=== PATIENT | female | born 1995 | race Hispanic/Latino ===

== ENCOUNTER 2018-10-23 16:35 | Inpatient (IN) | payer OTHER ==
--- OUTSIDE RECORDS SUMMARY | 2018-10-23 16:37 | XMS REPORT ---
:1995 [facility] Address [address] [place] [address] Dr. Starr [address] [place] [id number] Care Team Providers Name Role Phone Unavailable Unavailable Unavailable Problems This patient has no known problems. Allergies, Adverse Reactions, Alerts This patient has no known allergies or adverse reactions. Medications This patient has no known medications.
[2018-10-23] MEDS ORDERED: PROMETHAZINE 25 MG/ML VIAL IM PRN (17:23)
[2018-10-23] MEDS ORDERED: METHYLERGONOVINE 0.2MG/ML AMP IM PRN (17:23)
[2018-10-23] MEDS ORDERED: Ringers Lactate 1,000 ML IV PRN (17:23)
[2018-10-23] MEDS ORDERED: BUTORPHANOL 1 MG/ML INJ IV PRN (17:23)
[2018-10-23] MEDS ORDERED: Ringers Lactate 1,000 ML IV SCH (18:00)
[2018-10-23 18:17] LABS: Urine Appearance CLEAR; Urine Bilirubin NEGATIVE (NEG); Urine Blood TRACE (NEG); Urine Color DK YELLOW; Urine Glucose NEGATIVE (NEG); Urine Protein NEGATIVE (NEG); Urine Specific Gravity >=1.030 (1.005-1.030); Urine Urobilinogen 0.2 mg/dL (0.2-1.0)
[2018-10-23 18:27] LABS: Urine Microscopic Reflex ORDER UMIC
[2018-10-23 18:28] LABS: Urine Bacteria 20-50 /HPF (<20)
[2018-10-23 18:29] LABS: Urine Amorphous Sediment 1+ /HPF (NONE SEEN); Urine Culture Reflex Order ND; Urine Mucus 4+ /HPF (NONE SEEN)
[2018-10-23 18:49] LABS: Absolute Lymphocytes (CBC) 1.4 K/uL (0.7-4.9); Basophils % 0.3 % (0-1.3); Hematocrit 32.2 % (36.0-45.0); Lymphocytes % 5.7 % (15.3-44.8); RBC Red Blood Cell Count 3.96 M/uL (3.86-4.86)
[2018-10-23 18:54] VITALS: BMI 30.8
[2018-10-23 19:57] LABS: Blood Morphology Comment NOT SEEN (NOT SEEN); Platelet Estimate ADEQ
[2018-10-23 20:19] LABS: RPR (Rapid Plasma Reagin) NON-REACT (NON-REACT)
[2018-10-23] MEDS ORDERED: BUTORPHANOL 1 MG/ML INJ IV ONE (20:53)
[2018-10-24] MEDS ORDERED: FENTANYL CITR 100 MCG/2 ML IV ONE (01:11)
[2018-10-24] MEDS ORDERED: ROPIVACAINE HCL 100 ML IV PRN (01:11)
[2018-10-24] MEDS ORDERED: ROPIVACAINE HCL 0.2% 20ML AMP IV ONE (01:18)
[2018-10-24] MEDS ORDERED: ROPIVACAINE HCL 20 ML ONE (01:27)
[2018-10-24] MEDS ORDERED: ROPIVACAINE HCL 100 ML IV ONE (01:27)
--- NOTE | 2018-10-24 02:33 | PREOPHP ---
Date of Admission: 10/23/2018 A 22-year-old primigravida at approximately 39 to 39 weeks and 1 day, was seen earlier in the day for contractions and sent home. Came back, is now in more active labor. She has now progressed to 2-1/2 , almost 3 cm, 70% effaced, vertex at still -1 station, not well applied to the cervix. FHTs are nor mal and reactive. White count on admission was 23,000, but patient has been at home and seems to be hurting fairly well. She has already had 1 dose of Stadol and requesting another dose. Full admissi on talk given. She will probably be requesting epidural, but if possible, she will wait because she is 4 cm before she gets the epidural. I do not think she has any infection at this point. The uteru s is not tender. She is not warm. The baby looks good with no tachycardia, but we will watch her te mperatures carefully to make sure she does not develop an amnionitis. Full labor talk given. Stephanii forbes delivery sometime probably tomorrow. JERMAINE/JONATHAN Voice ID: [id number]
[2018-10-24] MEDS ORDERED: OXYTOCIN/LR 20 UNIT/1,000 ML BAG IV SCH (03:00)
[2018-10-24] MEDS ORDERED: PENICILLIN G POT 5 MU/VIAL IV ONE (03:42)
[2018-10-24] MEDS ORDERED: NA CHLORIDE 0.9% 200 ML IV ONE (03:43)
[2018-10-24] MEDS ORDERED: METOCLOPRAMIDE 10 MG/2mL INJ ONE (05:17)
[2018-10-24] MEDS ORDERED: FAMOTIDINE 20 MG/2 ML VIAL IV ONE (05:17)
[2018-10-24] MEDS ORDERED: NA CIT/CITRIC AC 30 ML ORAL UDC ONE (05:17)
[2018-10-24] MEDS ORDERED: CEFAZOLIN/SWI 1gm 2 GM/20 ML SYR ONE (05:17)
[2018-10-24] MEDS ORDERED: OXYTOCIN 10 UNIT/ML ML IV ONE ×2 (05:35)
[2018-10-24] MEDS ORDERED: MORPHINE SULFATE/PF 1 MG/ML (10 ML AMP) ONE (05:43)
[2018-10-24] MEDS ORDERED: LIDOCAINE 2% W/EPI 1:200,000 MPF 20 ML VIAL IM ONE (05:43)
[2018-10-24] MEDS ORDERED: METHYLERGONOVINE 0.2MG/ML AMP IM ONE (07:32)
[2018-10-24] MEDS ORDERED: KETOROLAC 30 MG/ML INJ ONE (08:45)
[2018-10-24] MEDS ORDERED: PENICILLIN 2.5 MU in NA CHLORIDE 0.9% 100 ML IV SCH (09:00)
[2018-10-24] MEDS ORDERED: PENICILLIN G POT 5 MU/100 ML VIAL IV ONE (09:00)
[2018-10-24] MEDS ORDERED: METHYLERGONOVINE 0.2 MG TAB PO ONE (09:22)
[2018-10-24] MEDS ORDERED: KETOROLAC 30 MG/ML INJ IV ONE (09:23)
--- NOTE | 2018-10-24 09:27 | PN ---
The patient has received her epidural and so numb she can barely move her leg. She is on 10, mainten ance. We will move it to 8. She is 4 cm, 80% to 90% effaced, vertex, -1 station. Rupture of membra ramo, very light meconium. Basically term fluid. Definitely not thick meconium. No bad odor. Patie nt has had no fevers. Baby does not have any tachycardia, still feel that we do not have any signs o f amnionitis. Scalp electrode placed. There was some question of late decelerations, but Pitocin wa s discontinued, it has gone back to normal. She has had 2 doses of Stadol, still very sleepy, but as the Stadol wears off, I think we will see more variability although the variability at this point re ally look quite good. With rupture of membranes, she is still lópez every 2 minutes on her own . I think we should start seeing some more progress. JERMAINE/JONATHAN Voice ID: [id number] Report ID: [id number]
[2018-10-24] MEDS: METHYLERGONOVINE 0.2 MG TAB PO PRN ×3 (09:28→17:58)
[2018-10-24 13:16] LABS: Absolute Lymphocytes (CBC) 2.2 K/uL (0.7-4.9); Basophils % 0.4 % (0-1.3); Hematocrit 30.1 % (36.0-45.0); Lymphocytes % 9.2 % (15.3-44.8); MPV 10.9 fL (7.6-11.3); RBC Red Blood Cell Count 3.75 M/uL (3.86-4.86)
[2018-10-24] MEDS ORDERED: CEFAZOLIN/SWI 2gm 2 GM/20 ML SYR IV ONE (14:00)
[2018-10-24] MEDS ORDERED: DIPHENHYDRAMINE 50 MG/ML VIAL IV ONE (15:30)
[2018-10-24] MEDS ORDERED: D5LR 1,000 ML with OXYTOCIN 20 UNIT IV SCH ×2 (16:00)
[2018-10-24] MEDS ORDERED: Oxycodone HCl/Acetaminophen 1 TAB TAB PO PRN (18:23)
[2018-10-24] MEDS: Oxycodone HCl/Acetaminophen 1 TAB TAB PO PRN (18:30)
[2018-10-25] MEDS ORDERED: KETOROLAC 30 MG/ML INJ ONE (00:18)
[2018-10-25] MEDS ORDERED: KETOROLAC 30 MG/ML INJ IV PRN (00:24)
[2018-10-25] MEDS ORDERED: MAGNESIUM HYDROXIDE 8% 30 ML PO PRN (04:20)
[2018-10-25] MEDS: Oxycodone HCl/Acetaminophen 1 TAB TAB PO PRN ×2 (07:42→14:23)
--- NOTE | 2018-10-25 08:42 | PN ---
Postoperatively, patient has done quite well. H and H with minimal change. The patient had an eleva elfego white count on admission. White count is still elevated, but she is completely afebrile, and not showing any signs of amnionitis. We will discontinue her Worley catheter this morning. We will leav e her IV, get another white blood count at around 12 to 1 o'clock. If that is decreasing we will dis continue the IV. We will start p.o. intake. Stress ambulation. Possibly send her home tomorrow. N o post epidural problems noted at this time. Lochia is normal. Tdap and flu shots have been discuss ed. JERMAINE/JONATHAN Voice ID: [id number] Report ID: [id number]
--- NOTE | 2018-10-25 08:49 | PREOPHP ---
Date of Admission: 10/23/2018 Patient is 4 cm, 70% effaced, with rupture of membranes, got her brownish type fluid, nothing looks l ight meconium, but not completely normal looking fluid either and no odor. Patient has an epidural a nd she is extremely comfortable but we have seen minimal skts-mf-pytd variability. For some time, sh e is long as 10 inches minutes at a time. Acoustic stimulation resulted in minimal response. At thi s point, I think we have nonreassuring situation. Patient is counseled, she wishes to proceed with cuong dobbs. Infection, blood loss, anesthetic complications, injury to bladder, bowel, ureter, postoper ative complications, clots in legs, pneumonia discussed. The patient knows fully well, this does not constitute all the possible problems that could occur during or following surgery. Heart and lungs are clear. Breasts not examined. Abdomen is term. Extremities are clear without major edema, cyano sis, or clubbing. Pelvic exam is as stated. She has no allergies. We will give her 2 g of Ancef, F oley catheters inserted. Dr. Bailey and Dr. Vargas for medical assistant float surgeon, and Dr. Lora, Ped iatrics all been notified and preparations are being made at this time. JERMAINE/JONATHAN Voice ID: [id number]
--- NOTE | 2018-10-25 08:57 | OP ---
Surgeon: Kris Gandara MD This 22-year-old primigravida, on admission 39 weeks and 1 day, delivery, came in early labor and pro gressed to approximately 4 cm and then experienced secondary arrest of labor for several hours. James miguel was started but then patient had late decelerations therefore the Pitocin was stopped, came in ru pture of membranes, brownish type fluid was noted. Admission white count of 23,000 but afebrile. No unusual odor. No severe uterine tenderness. No tachycardia. Patient requested and received epidural anesthesia and 2 doses of Stadol IV prior to the epidural. It was decided to proceed with c esarean section secondary to nonreassuring and failure to progress. Infection, blood loss, anestheti c complications injury to bladder, bowel, ureter, postoperative complications, clots in legs, and pne umonia. The patient knows fully well, this not constitute all the possible problems that could occur during or following surgery. The epidural anesthesia was used with Dr. Bailey being here for marcela jcak. Dr. Vargas for executive sales assistant, surgeon Dr. Lora and pediatric attendance. The patient was prepped and draped in the usual sterile manner and placed in dorsal supine position. Timeout was per formed. 2 g of Ancef had been given preop for prophylaxis. Pfannenstiel incision was created. The incision was carried to the fascia. The fascia was incised and incision carried transversely bilater ally. Anterior fascial plane was developed with both blunt and sharp dissection. The underlying rec tus muscle was . The posterior fascial plane was also developed. Bladder flap developed. Low transverse uterine incision created. A 6 pounds 12 ounce female delivered without difficulties, Apgars 8 and 9. No unusual odor, but brownish fluid as noted previously. Placenta removed manually. Uterus cleared of clot and blood and exteriorized. Mild uterine hypotonus, 0.2 mg of Methergine IM as well as IV drip Pitocin and massage. Total blood loss during the procedure 1000 cc. Uterus clos ed with a running locked stitch of 1 chromic, followed by imbricating, followed by 2 huisma-fi-pnogc stitches in either angle for complete hemostasis. Gutters cleared of clot and blood. Uterus was rep laced in the peritoneal cavity. Inspection of suture line showed no further bleeding. Rectus muscle s were with 3 sutures of 0 Vicryl. The fascia was then reapproximated with 1 Vicryl runnin g from either angle to the midline. Subcutaneous tissue was closed with 2-0 plain. Absorbable stapl es placed and then metal dereck. Patient tolerated all procedures well, was transferred back to her room in good condition. She was noted to have a tachycardia according to the nurses' which began ri ght after her epidural was given, possibly some epinephrine drift into the systemic circulation howev er patient is quite stable at this point and is conversant and alert. We will monitor the pulse of cuong wilcox carefully. Final Diagnoses: Intrauterine gestation, nonreassuring FHTs. Failure to progress in labor, primary section, low transverse cervical. Epidural anesthesia. Mild uterine hypotonus. JERMAINE/JONATHAN Voice ID: [id number] Report ID: [id number]
[2018-10-25 12:32] LABS: Absolute Lymphocytes (CBC) 1.8 K/uL (0.7-4.9); Basophils % 0.1 % (0-1.3); Hematocrit 27.2 % (36.0-45.0); Lymphocytes % 9.3 % (15.3-44.8); MPV 10.8 fL (7.6-11.3); RBC Red Blood Cell Count 3.39 M/uL (3.86-4.86)
[2018-10-25 13:16] LABS: Blood Morphology Comment NOTED (NOT SEEN); Hypochromasia 1+; Platelet Estimate ADEQ; Urine White Blood Cell Casts OK
[2018-10-26] MEDS: Oxycodone HCl/Acetaminophen 1 TAB TAB PO PRN ×2 (03:30→08:05)
[2018-10-26] MEDS ORDERED: Tdap (Diph,Pertuss(Acell),Tet Vac) 0.5 ML SYR IMVAC ONE (07:47)
[2018-10-26 08:26] VITALS: BP 121/65; TEMP 96.7
--- NOTE | 2018-10-28 09:58 | DS ---
Date of Discharge: 10/26/2018 Summary: This 22-year-old primigravida, 39 weeks 1 day, underwent primary section, nonreass uring heart tones and failure to progress in labor. 6 pounds 12 ounce female, Apgars 8 and 9. Brownish-looking amniotic fluid, but no true meconium. Epidural anesthesia used during the labor an d for section, mild uterine hypotonus. Estimated blood loss 1000 cc. Postoperatively, H an d H with minimal change. Vital signs are all stable. No post epidural problems. Ambulating and voi ding. Lochia is normal. Full dismissal instructions given. She is to be seen next week in the offi ce for staple removal. Over the weekend, any fever, pain, bleeding or any other problems, she is to call to labor and delivery. The patient cannot remember whether she has had her Tdap immunization du ring the . She was given instructions to get it several times but cannot remember whether s he came up to labor and delivery and got it. She can get another one if she chooses. She knows she c an come by the office next week for flu shots. We have gone over all of this before in the and we went over it again today. Final Diagnoses: Intrauterine gestation, 39 weeks 1 day, primary section, nonreassuring FHT s and failure to progress in labor. Mild uterine hypotonus. JERMAINE/JONATHAN Voice ID: [id number] Report ID: [id number]
[2018-10-29 03:55] LABS: HBsAG Nonreactive (Nonreactive)
== END 2018-10-26 08:35 | disposition home or self-care (01) | DRG 788 ==
LOC: L&D 16:35 → 2ND-WC 17:51
PROVIDERS: ADMIT Specialist; ATTEND Specialist
PROC: 10D00Z1 Extraction of Products of Conception, Low, Open Approach (ICD-10-PCS; 2018-10-24)
PROC: 10907ZC Drainage of Amniotic Fluid, Therapeutic from Products of Conception, Via Natural or Artificial Opening (ICD-10-PCS; principal; 2018-10-24 05:56)
DX: O76 Abnormality in fetal heart rate and rhythm complicating labor and delivery (principal); O62.0 Primary inadequate contractions; O62.2 Other uterine inertia; Z3A.39 39 weeks gestation of pregnancy; Z37.0 Single live birth; Z23 Encounter for immunization
CPT/HCPCS: 36415; 81003; 81015; 85025; 86592; 86901; 87340; 88307; 90471; 90715; 99218; J0595; J0690; J2550; J2590; J2765; J2795; J3010

== ENCOUNTER 2018-10-27 14:58 | Emergency (ER) | payer OTHER ==
--- OUTSIDE RECORDS SUMMARY | 2018-10-27 15:01 | XMS REPORT ---
:1995 [facility] Address [address] [place] [address] Dr. St[address] [place] [address] Care Team Providers Name Role Phone Unavailable Unavailable Unavailable Problems This patient has no known problems. Allergies, Adverse Reactions, Alerts This patient has no known allergies or adverse reactions. Medications This patient has no known medications.
--- NOTE | 2018-10-27 15:30 | RAD REPORT ---
EXAM DESCRIPTION: RAD - Chest Pa And Lat (2 Views) - 10/27/2018 3:25 pm CLINICAL HISTORY: SOB Chest pain. COMPARISON: No comparisons FINDINGS: The lungs are clear. The heart is normal in size. No displaced fractures. IMPRESSION: No acute or concerning finding suspected.
[2018-10-27 17:33] LABS: Urine Blood 1+ (NEG); Urine Glucose NEGATIVE (NEG); Urine Protein NEGATIVE (NEG); Urine Specific Gravity 1.015 (1.005-1.030); Urine pH 6.5 (5.0-7.0)
--- NOTE | 2018-10-27 17:41 | RAD REPORT ---
EXAM DESCRIPTION: CT - Chest For Pe Angio - 10/27/2018 5:30 pm CLINICAL HISTORY: Chest pain. shortness of breath, recent surgery COMPARISON: No comparisons TECHNIQUE: CT angiogram of the pulmonary arteries was performed with MIP. All CT scans are performed using dose optimization technique as appropriate and may include automated exposure control or mA/KV adjustment according to patient size. FINDINGS: No evidence of pulmonary thromboembolism. No acute aortic finding demonstrated. The lungs are clear. No significant pericardial or pleural fluid. No concerning bony finding. IMPRESSION: No evidence of pulmonary thromboembolism. No acute lung findings.
--- NOTE | 2018-10-27 18:15 | EDPHYS ---
Physician Documentation [facility] Name: Frida Smith Age: 22 yrs Sex: Female : 1995 Arrival Date: 10/27/2018 Time: 15:00 Bed 23 Private MD: ED Physician Payam Garcia HPI: 10/27 16:07 This 22 yrs old Female presents to ER via Ambulatory with complaints of Low jmm Back Pain, Shortness Of Breath. 16:07 The patient presents with pain that is acute, with no known mechanism of injury. Onset: jmm The symptoms/episode began/occurred gradually, 2 day(s) ago. Modifying factors: The patient symptoms are alleviated by nothing, the patient symptoms are aggravated by deep inspiration. Associated signs and symptoms: Pertinent negatives: fever, chest pain. The patient has not experienced similar symptoms in the past. Patient is 2 days s/p cesarian delivery. Denies fever. . 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 - Social history:: Smoking status: Patient/guardian denies using tobacco. - Ebola Screening: : Patient negative for fever greater than or equal to 101.5 degrees Fahrenheit, and additional compatible Ebola Virus Disease symptoms Patient denies exposure to infectious person Patient denies travel to an Ebola-affected area in the 21 days before illness onset No symptoms or risks identified at this time. ROS: 16:07 Constitutional: Negative for fever, chills, and weight loss, Cardiovascular: Negative jmm for chest pain, palpitations, and edema. 16:07 Abdomen/GI: Negative for abdominal pain, nausea, vomiting, diarrhea, and constipation. 16:07 Respiratory: Positive for shortness of breath. 16:07 Back: Positive for pain with movement. 16:07 All other systems are negative. Exam: 16:07 Constitutional: This is a well developed, well nourished patient who is awake, alert, jmm and in no acute distress. Head/Face: atraumatic. Eyes: EOMI, no conjunctival erythema appreciated ENT: Moist Mucus Membranes Neck: Trachea midline, Supple Chest/axilla: Normal chest wall appearance and motion. Cardiovascular: Regular rate and rhythm. No edema appreciated 16:07 Respiratory: the patient does not display signs of respiratory distress, Respirations: normal, Breath sounds: are clear throughout. 16:07 Back: left paraspinal thoracic pain on palpation. [facility] 16:07 Musculoskeletal/extremity: ROM: intact in all extremities. 16:07 Skin: Appearance: Color: normal in color. 16:07 Neuro: Orientation: is normal, Mentation: is normal, Memory: is normal. 16:07 Psych: Behavior/mood is pleasant, cooperative. Vital Signs: 15:04 BP 121 / 96; Pulse 97; Resp 20; Temp 98; Pulse Ox 97% ; Weight 73.94 kg; Height 5 ft. 1 sv in. (154.94 cm); 16:37 BP 120 / 88; Pulse 82; Resp 16 S; Pulse Ox 98% on R/A; ca1 17:45 BP 112 / 82; Pulse 78; Resp 16 S; Pulse Ox 98% on R/A; ca1 18:23 BP 115 / 89; Pulse 81; Resp 17 S; Pulse Ox 98% on R/A; ca1 15:04 Body Mass Index 30.80 (73.94 kg, 154.94 cm) sv MDM: 16:07 Patient medically screened. [facility] 18:12 Data reviewed: vital signs, nurses notes. Counseling: I had a detailed discussion with yuki the patient and/or guardian regarding: the historical points, exam findings, and any diagnostic results supporting the discharge/admit diagnosis, radiology results, the need for outpatient follow up, to return to the emergency department if symptoms worsen or persist or if there are any questions or concerns that arise at home. ED course: Imaging studies negative. Patient is alert and non toxic in appearance. patient advised to follow up with pcp and otherwise given strict return precautions. Patient understood and agrees with the plan of care. . 10/27 16:10 Order name: Creatinine for Radiology [facility] 10/27 16:10 Order name: D-Dimer [facility] 10/27 16:50 Order name: D-Dimer; Complete Time: 16:50 [facility] 10/27 16:51 Order name: Creatinine (Radiology Only); Complete Time: 16:56 [facility] 10/27 16:56 Order name: Urine Dipstick--Ancillary (enter results) 10/27 17:35 Order name: Urine Dipstick-Ancillary; Complete Time: 17:40 [facility] 10/27 15:06 Order name: Chest Pa And Lat (2 Views) XRAY 10/27 15:33 Order name: RAD; Complete Time: 15:50 [facility] 10/27 16:12 Order name: Urine Dipstick-Ancillary (obtain specimen); Complete Time: 16:51 [facility] 10/27 16:49 Order name: CT Chest For PE Angio [facility] 10/27 17:43 Order name: CT; Complete Time: 17:43 [facility] 10/27 17:45 Order name: EKG - Nurse/Tech; Complete Time: 18:08 [facility] Administered Medications: No medications were administered Disposition: 10/28 09:01 Co-signature as Attending Physician, Payam Garcia MD I agree with the assessment and kdr plan of care. Disposition: 10/27/18 18:13 Discharged to Home. Impression: Strain of muscle and tendon of back wall of thorax. - Condition is Stable. - Discharge Instructions: Thoracic Strain. - Medication Reconciliation Form, Thank You Letter, Antibiotic Education, Prescription Opioid Use form. - Follow up: Private Physician; When: 2 - 3 days; Reason: Recheck today's complaints, Continuance of care, Re-evaluation by your physician. Signatures: Dispatcher [employer] Nicol Arango, SHEBA RN Payam Cole MD MD kdr Mickail, Joel, PA PA Raegan Wisdom RN RN ca1 Corrections: (The following items were deleted from the chart) 10/27 17:46 16:07 Respiratory: the patient does not display signs of respiratory distress, [facility] Respirations: normal, Breath sounds: are clear throughout, [facility] 18:24 18:13 10/27/2018 18:13 Discharged to Home. Impression: Strain of muscle and tendon of ca1 back wall of thorax. Condition is Stable. Forms are Medication Reconciliation Form, Thank You Letter, Antibiotic Education, Prescription Opioid Use. Follow up: Private Physician; When: 2 - 3 days; Reason: Recheck today's complaints, Continuance of care, Re-evaluation by your physician. [facility]
--- NOTE | 2018-10-27 18:15 | ER ---
Nurse's Notes [facility] Name: Frida Smith Age: 22 yrs Sex: Female : 1995 Arrival Date: 10/27/2018 Time: 15:00 Bed 23 Private MD: Diagnosis: Strain of muscle and tendon of back wall of thorax Presentation: 10/27 15:03 Presenting complaint: Patient states: upper back pain when taking a deep breath when sv laying down, SOB only when laying flat. Reports on 10/24/18. Transition of care: patient was not received from another setting of care. Onset of symptoms was October 26, 2018. Risk Assessment: Do you want to hurt yourself or someone else? Patient reports no desire to harm self or others. Care prior to arrival: None. 15:03 Method Of Arrival: Ambulatory sv 15:03 Acuity: LIBAN 3 sv 16:41 Initial Sepsis Screen: Does the patient meet any 2 criteria? No. Patient's initial ca1 sepsis screen is negative. Does the patient have a suspected source of infection? No. Patient's initial sepsis screen is negative. Triage Assessment: 15:03 General: Appears in no apparent distress. uncomfortable, Behavior is calm, cooperative, sv appropriate for age. Pain: Denies pain. Neuro: Level of Consciousness is awake, alert, obeys commands, Gait is steady. Respiratory: Reports shortness of breath at rest only when laying down and taking a deep breath Onset: The symptoms/episode began/occurred yesterday, the patient has mild shortness of breath. 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 - Social history:: Smoking status: Patient/guardian denies using tobacco. - Ebola Screening: : Patient negative for fever greater than or equal to 101.5 degrees Fahrenheit, and additional compatible Ebola Virus Disease symptoms Patient denies exposure to infectious person Patient denies travel to an Ebola-affected area in the 21 days before illness onset No symptoms or risks identified at this time. Screenin:37 Abuse screen: Denies threats or abuse. Denies injuries from another. Nutritional ca1 screening: No deficits noted. Tuberculosis screening: No symptoms or risk factors identified. Fall Risk IV access (20 points). Assessment: 16:37 General: Appears in no apparent distress. comfortable, Behavior is calm, cooperative, ca1 appropriate for age. Pain: Complains of pain in left subscapular area Pain does not radiate. Pain currently is 5 out of 10 on a pain scale. Quality of pain is described as dull, Is continuous, Aggravated by laying flat. Neuro: Level of Consciousness is awake, alert, obeys commands, Oriented to person, place, time, situation, Appropriate for age. Cardiovascular: Heart tones S1 S2 present Capillary refill < 3 seconds Patient's skin is warm and dry. Pulses are all present. Rhythm is regular. Respiratory: Airway is patent Respiratory effort is even, unlabored, Respiratory pattern is regular, symmetrical, Breath sounds are clear bilaterally. GI: Abdomen is round non-distended, Bowel sounds present X 4 quads. Abd is soft and non tender X 4 quads. : No deficits noted. No signs and/or symptoms were reported regarding the genitourinary system. EENT: No deficits noted. No signs and/or symptoms were reported regarding the EENT system. Derm: Skin is intact, is healthy with good turgor, Skin is pink, warm \T\ dry. Musculoskeletal: Circulation, motion, and sensation intact. Capillary refill < 3 seconds, Range of motion: intact in all extremities. 17:45 Reassessment: Patient appears in no apparent distress at this time. Patient and/or ca1 family updated on plan of care and expected duration. Pain level reassessed. Patient is alert, oriented x 3, equal unlabored respirations, skin warm/dry/pink. 18:23 Reassessment: Patient appears in no apparent distress at this time. Patient is alert, ca1 oriented x 3, equal unlabored respirations, skin warm/dry/pink. Vital Signs: 15:04 BP 121 / 96; Pulse 97; Resp 20; Temp 98; Pulse Ox 97% ; Weight 73.94 kg; Height 5 ft. 1 sv in. (154.94 cm); 16:37 BP 120 / 88; Pulse 82; Resp 16 S; Pulse Ox 98% on R/A; ca1 17:45 BP 112 / 82; Pulse 78; Resp 16 S; Pulse Ox 98% on R/A; ca1 18:23 BP 115 / 89; Pulse 81; Resp 17 S; Pulse Ox 98% on R/A; ca1 15:04 Body Mass Index 30.80 (73.94 kg, 154.94 cm) sv ED Course: 15:00 Patient arrived in ED. rg4 15:04 Triage completed. sv 15:05 Arm band placed on. sv 15:58 Chest Pa And Lat (2 Views) XRAY Sent. jp3 16:06 Pino Colón PA is PHCP. [facility] 16:06 Payam Garcia MD is Attending Physician. jm 16:33 Initial lab(s) drawn, by tx, sent to lab. Urine collected: clean catch specimen, clear, jp3 demar colored. Inserted saline lock: 20 gauge in right antecubital area, using aseptic technique. Blood collected. 16:35 Raegan Ramos, SHEBA is Primary Nurse. ca1 16:37 Patient has correct armband on for positive identification. Placed in gown. Bed in low ca1 position. Call light in reach. Side rails up X 1. Pulse ox on. NIBP on. Warm blanket given. 16:54 D-Dimer Sent. jp3 16:54 Creatinine for Radiology Sent. jp3 17:07 Urine Dipstick--Ancillary (enter results) Sent. ca1 17:32 CT completed. Patient tolerated procedure well. Patient moved back from CT. bq 18:15 EKG done, by ED staff, reviewed by Pino CARD. jp3 18:24 No provider procedures requiring assistance completed. IV discontinued, intact, ca1 bleeding controlled, No redness/swelling at site. Pressure dressing applied. Administered Medications: No medications were administered Outcome: 18:13 Discharge ordered by . yuki 18:24 Discharged to home ambulatory. ca1 18:24 Condition: stable 18:24 Discharge instructions given to patient, Instructed on discharge instructions, follow up and referral plans. Demonstrated understanding of instructions, follow-up care. 18:24 Patient left the ED. ca1 Signatures: Nicol Henry RN RN Pino Colón PA PA Renee Gómez Rubi rg4 Dakota Bernstein jp3 Raegan Ramos RN RN ca1 Corrections: (The following items were deleted from the chart) 15:06 15:04 BP 135 / 103; Pulse 97bpm; Resp 20bpm; Pulse Ox 97%; Temp 98F; 73.94 kg; Height 5 sv ft. 1 in.; BMI: 30.8; sv
[2018-10-27 19:20] VITALS: TEMP 98
[2018-10-27 19:21] VITALS: O2SAT 98
[2018-10-27 19:23] VITALS: BP 115/89
--- NOTE | 2018-10-28 11:34 | EKG ---
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
== END 2018-10-27 18:24 | disposition home or self-care (01) ==
LOC: ER 14:58
DX: S29.012A Strain of muscle and tendon of back wall of thorax, initial encounter (principal); X58.XXXA Exposure to other specified factors, initial encounter; Z98.890 Other specified postprocedural states
CPT/HCPCS: 93005; 36415; 85379; 81003; 71275; 71046; 99284; Q9967